=== PATIENT | male | born 1970 | race Caucasian/White ===

== ENCOUNTER 2024-12-01 21:42 | Inpatient (IN) | payer OTHER ==
[2024-12-01 22:10] VITALS: BMI 29.4
[2024-12-01] MEDS ORDERED: IBUPROFEN 400 MG TABLET (FP) PO PRN (22:52)
[2024-12-01] MEDS ORDERED: guaiFENesin 600 MG TABLET.ER (FP) PO PRN (22:52)
[2024-12-01] MEDS ORDERED: METHOCARBAMOL 500 MG TABLET PO PRN (22:52)
[2024-12-01] MEDS ORDERED: BENZOCAINE/MENTHOL (CHLORASEPTIC ) LOZENGE MM PRN (22:52)
[2024-12-01] MEDS ORDERED: POLYETHYLENE GLYCOL (HEALTHYLAX) 3350 17 GM PACKET PO PRN (22:52)
[2024-12-01] MEDS ORDERED: ONDANSETRON *ODT* 4 MG TABLET SL PRN (22:52)
[2024-12-01] MEDS ORDERED: MAGNESIUM HYDROX 2400MG/30ML ORAL SUSPENSION 30 ML CUP PO PRN (22:52)
[2024-12-01] MEDS ORDERED: BISMUTH SUBSALICYLATE 524 MG/30 ML PO PRN (22:52)
[2024-12-01] MEDS ORDERED: DICYCLOMINE HCL 10 MG CAPSULE PO PRN (22:52)
[2024-12-01] MEDS ORDERED: BENZONATATE 200 MG CAPSULE PO PRN (22:52)
[2024-12-01] MEDS ORDERED: NALOXONE (NARCAN) HCL 4 MG/0.1 ML SPRAY NS PRN (22:52)
[2024-12-01] MEDS ORDERED: MAG HYDROX/AL HYDROX/SIMETH 30 ML UNIT-DOSE CUP PO PRN (22:52)
[2024-12-01] MEDS ORDERED: LOPERAMIDE HCL 2 MG CAPSULE PO PRN (22:52)
[2024-12-01] MEDS: chlordiazePOXIDE HCL 25 MG CAPSULE PO SCH (23:54)
[2024-12-02] MEDS: PRENATAL VITAMINS W/ FOLIC ACID TABLET (FP) PO SCH (10:22)
[2024-12-02 12:34] LABS: POTASSIUM 3.8 mmol/L (3.5-5.1)
[2024-12-02 12:40] LABS: BLOOD UREA NITROGEN 9.7 mg/dL (7-18)
[2024-12-02 12:43] LABS: CALCIUM 8.8 mg/dL (8.5-10.1)
[2024-12-02 12:44] LABS: ALBUMIN 3.2 g/dl (3.4-5.0)
[2024-12-02 12:45] LABS: CREATININE 0.7 mg/dL (0.55-1.3)
[2024-12-02 12:48] LABS: HEMATOCRIT 33.7 % (35.4-49); HEMOGLOBIN 10.9 GM/dL (11.7-16.9); MCH 28.4 pg (25.7-33.7); MCHC 32.5 g/dl (32.0-35.9); MEAN CELL VOLUME 87.3 fl (80-96); MEAN PLT VOLUME 6.7 fl (7.5-11.1); PLATELET COUNT 162 10^3/uL (134-434); RBC 3.86 M/mm3 (4.00-5.60); RDW 17.7 % (11.9-15.9); TOT PROT 6.5 g/dl (6.4-8.2); WHITE BLOOD COUNT 3.5 K/mm3 (4.0-10.0)
[2024-12-02 12:49] LABS: BILIRUBIN,TOTAL 0.8 mg/dL (0.2-1)
[2024-12-02] MEDS: chlordiazePOXIDE HCL 25 MG CAPSULE PO PRN (13:33)
[2024-12-02] MEDS: ACETAMINOPHEN 325 MG TABLET (FP) PO PRN (13:35)
[2024-12-02] MEDS: THIAMINE 100 MG TABLET PO SCH (22:12)
[2024-12-02] MEDS: MELATONIN 5 MG TABLETS PO SCH (22:12)
[2024-12-03] MEDS: chlordiazePOXIDE HCL 25 MG CAPSULE PO SCH (05:23)
[2024-12-03] MEDS: LIDOCAINE 5% TOPICAL PATCH TP SCH (10:53)
[2024-12-03] MEDS: diazePAM 5 MG TABLET PO SCH (17:31)
[2024-12-03] MEDS: LIDOCAINE PATCH REMOVAL MC SCH (22:16)
[2024-12-03] MEDS: hydrOXYzine PAMOATE 25 MG CAPSULE (FP) PO PRN (22:19)
[2024-12-04] MEDS ORDERED: chlordiazePOXIDE HCL 10 MG CAPSULE PO PRN
[2024-12-04] MEDS ORDERED: chlordiazePOXIDE HCL 10 MG CAPSULE PO SCH (05:00)
[2024-12-04] MEDS: diazePAM 5 MG TABLET PO SCH (05:43)
[2024-12-04] MEDS: diazePAM 5 MG TABLET PO PRN (15:39)
[2024-12-04] MEDS: IBUPROFEN 600 MG TABLET (FP) PO PRN (22:11)
[2024-12-05] MEDS ORDERED: chlordiazePOXIDE HCL 10 MG CAPSULE PO SCH (05:00)
[2024-12-05] MEDS: diazePAM 5 MG TABLET PO SCH (05:48)
[2024-12-06] MEDS ORDERED: chlordiazePOXIDE HCL 10 MG CAPSULE PO ONE (05:00)
[2024-12-06] MEDS: diazePAM 5 MG TABLET PO ONE (05:56)
[2024-12-06 09:08] VITALS: BP 131/80; PULSE 68; RESP 16; TEMP 97.6
== END 2024-12-06 09:27 | disposition home or self-care (01) | DRG 775 ==
LOC: YASAS 21:42 → Y3N 23:32
PROVIDERS: ADMIT Allergy & Immunology; ATTEND Allergy & Immunology
PROC: HZ2ZZZZ Detoxification Services for Substance Abuse Treatment (ICD-10-PCS; principal; 2024-12-01)
DX: F10.230 Alcohol dependence with withdrawal, uncomplicated (principal); M17.9 Osteoarthritis of knee, unspecified; Z56.0 Unemployment, unspecified; Z59.00 Homelessness unspecified
CPT/HCPCS: 36415; 80053; 80305; 80307; 85027; 86780; 93005; 93010